=== PATIENT | male | born 1955 | race Caucasian/White ===

== ENCOUNTER 2020-04-06 06:44 | Day surgery (SDC) | payer MEDICARE, BC ==
[2020-04-06] MEDS ORDERED: Lactated Ringers 1,000 ML IV SCH (06:45)
[2020-04-06] MEDS ORDERED: Propofol 200 MG/20 ML SDV IV ONE (06:45)
[2020-04-06] MEDS ORDERED: Lidocaine 1% PF 2 ML SDV INJECT ONE (06:45)
[2020-04-06] MEDS ORDERED: Sodium Chloride 0.9% 10 ML Syringe FLUSH PRN (06:45)
--- NOTE | 2020-04-06 08:13 | PCM.OPNOTE ---
- General Post-Op/Procedure Note Date of Surgery/Procedure: 04/06/20 Operative Procedure(s): c scope Findings: sigmoid diverticulosis Pre Op Diagnosis: personal hx of colon polyp Post-Op Diagnosis: sigmoid diverticulosis Anesthesia Technique: WALDO Primary Surgeon: Ayan Durán Anesthesia Provider: Epifanio Alfred Pathology: none Complications: None Condition: Good Free Text/Narrative:: see dictation
[2020-04-06 08:15] VITALS: BP 127/77; PULSE 63
--- NOTE | 2020-04-06 12:19 | OR ---
DATE OF OPERATION: 04/06/2020 SURGEON: Ayan Durán MD PROCEDURE PERFORMED: Colonoscopy. PREOPERATIVE DIAGNOSIS: Personal history of colon polyps. POSTOPERATIVE DIAGNOSIS: Sigmoid diverticulosis. INDICATIONS FOR PROCEDURE: This is a 65-year-old white male who 6 years ago had a colonoscopy, had some adenomatous polyps removed. He is due for followup C- scope at this point. He was offered and accepted C-scope. DESCRIPTION OF PROCEDURE: After an excellent IV sedation was administered, digital rectal exam was performed. No marked abnormality was noted. Flexible colonoscope was inserted and advanced to the cecum. Prep was excellent. Following findings were noted. Ascending colon, unremarkable. Transverse colon, unremarkable. Descending colon, unremarkable. Sigmoid, mild diverticulosis. Rectum and anus, unremarkable. Colon was deflated as the scope was removed. Patient tolerated the procedure well, was taken to recovery. RECOMMENDATIONS: Repeat colonoscopy in 10 years. /[id number] /TRISTANL
== END 2020-04-06 08:54 | disposition home or self-care (01) ==
LOC: FB.SDS 06:44
PROVIDERS: ATTEND Surgery
DX: Z12.11 Encounter for screening for malignant neoplasm of colon (principal); K57.30 Diverticulosis of large intestine without perforation or abscess without bleeding; I10 Essential (primary) hypertension; Z79.899 Other long term (current) drug therapy; Z79.82 Long term (current) use of aspirin; Z86.010 Personal history of colon polyps; Z90.49 Acquired absence of other specified parts of digestive tract; Z98.890 Other specified postprocedural states
CPT/HCPCS: 00811-QZ; J2001; J2704; J7120